=== PATIENT | male | born 1945 | race Hispanic/Latino ===

== ENCOUNTER 2018-05-22 16:31 | Emergency (ER) | payer MEDICARE ==
[~2018-05-22] VITALS: Ht 182.9 cm; Wt 99.8 kg
== END 2018-05-22 17:03 | disposition home or self-care (01) ==
LOC: FSED 16:31
DX: R06.00 Dyspnea, unspecified (principal); T60.91XA Toxic effect of unspecified pesticide, accidental (unintentional), initial encounter; I10 Essential (primary) hypertension
CPT/HCPCS: 99282